=== PATIENT | female | born 2000 | race Caucasian/White ===

== ENCOUNTER 2021-06-16 01:20 | Emergency (ER) | payer BC ==
[~2021-06-16] VITALS: Ht 160 cm; Wt 101.2 kg
[~2021-06-16 01:20] MED LIST: AMOX500C PO; LISD20CA4 PO
--- NOTE | 2021-06-16 01:46 | PHYS DOC ---
Past History Past Medical History: Other Past Surgical History: No Surgical History Smoking: Non-smoker Alcohol Use: None Drug Use: None General Adult HPI: HPI: ".. I am having bad abdomen pain.. ." Patient is a 20 year old female who presents with above hx and complaints severe right upper quadrant pain after eating hamburgers tonight. Patient has history of previous episodes of her some high-fat meals during her . Patient recently delivered at [facility] 5 week.s ago. Patient had some preeclampsia symptoms. Patient denies any trauma. No history of bad food. ate the same meal and was not ill from it. Patient denies any recent travel. No specific ill contacts. Patient does not know if family members had gallstones stones or gallbladder problems because she is adopted. Review of Systems: Review of Systems: Constitutional: Denies fever or chills Eyes: Denies change in visual acuity HENT: Denies nasal congestion or sore throat Respiratory: Denies cough or shortness of breath Cardiovascular: Denies chest pain or edema GI: Complains of severe right upper quadrant abdominal pain, nausea,. Denies vomiting, bloody stools or diarrhea : Denies dysuria Musculoskeletal: Denies back pain or joint pain Integument: Denies rash Neurologic: Denies headache, focal weakness or sensory changes Endocrine: Denies polyuria or polydipsia Lymphatic: Denies swollen glands Psychiatric: Denies depression or anxiety Family History: Family History: Not available since she is adopted Current Medications: Current Meds: See nursing for home medications Allergies: Allergies: Allergies Coded Allergies Type Severity Reaction Last Updated Verified No Known Drug Allergies 11/13/15 No Physical Exam: PE: Constitutional: Moderate acute distress, non-toxic appearance. [] HENT: Normocephalic, atraumatic, bilateral external ears normal, oropharynx moist, no oral exudates, nose normal. [] Eyes: PERRLA, EOMI, conjunctiva normal, no discharge. [] Neck: Normal range of motion, no tenderness, supple, no stridor. [] Cardiovascular: Bradycardia heart rate regular rhythm, no murmur [] Lungs & Thorax: Bilateral breath sounds equal apex on auscultation [] Abdomen: Bowel sounds decreased, soft, right upper quad tenderness, no masses, no pulsatile masses. [] Rebound to right upper quadrant. Distended. Obese Skin: Warm, dry, no erythema, no rash. [] Back: No tenderness, no CVA tenderness. [] Extremities: No tenderness, no cyanosis, no clubbing, ROM intact, no edema. No psoas sign. Neurologic: Alert and oriented X 3, normal motor function, normal sensory function, no focal deficits noted. [] Psychologic: Affect anxious, judgement normal, mood normal. [] EKG: EKG: My interpretation of EKG shows a sinus bradycardia at 56 bpm no acute morphology. Time of EKG is 206 hours [] Radiology/Procedures: Radiology/Procedures: [address] [address] IMAGING REPORT Signed PATIENT: VICTORIA CARROLL ACCOUNT: [id number] : 2000 LOCATION: ER AGE: 20 SEX: F EXAM STATUS: REG ER ORD. PHYSICIAN: FRANKLIN TAYLOR MD REASON: Right sided abdomen pain, childbirth 1 month ago Omni 300 75cc PROCEDURE: CT ABD PELV W/ORAL&IV CONTRAST CT ABDOMEN+PELVIS W History: Right-sided abdominal pain. Comparison: None. Technique: CT of the abdomen and pelvis with intravenous and oral contrast. Findings: The lung bases are clear. The liver is unremarkable. Cholelithiasis. Mild common bile duct dilatation measuring 9 mm diameter with mild intrahepatic biliary ductal dilatation. The pancreas, spleen and adrenal glands are unremarkable. The kidneys are within normal limits. No nephrolithiasis or hydronephrosis. The stomach and small bowel are within normal limits. Normal appendix. Mild colonic stool burden. No colonic wall thickening or pericolonic inflammatory changes. The uterus and bladder are unremarkable. No intra-abdominal free fluid or free air. Vasculature is within normal limits. No adenopathy. Soft tissues and osseous structures are unremarkable. Impression: 1. Mildly dilated 9 mm common bile duct and mild intrahepatic biliary ductal dilatation. Cholelithiasis. Findings may relate to choledocholithiasis. If there is evidence of cholestasis, consider MRCP for further evaluation. 2. Mild colonic stool burden without obstruction. ------ Exposure: One or more of the following individualized dose reduction techniques were utilized for this examination: 1. Automated exposure control 2. Adjustment of the mA and/or kV according to patient size 3. Use of iterative reconstruction technique. Electronically signed by: Kartik Russell MD (06/16/2021 3:42 AM) [facility] DICTATED AND SIGNED BY: KARTIK RUSSELL MD DATE: 06/16/21 033 CC: FRANKLIN TAYLOR MD; KATIE JC ~ [][place] [address] IMAGING REPORT Signed PATIENT: STUART GARCIA ACCOUNT: [id number] : 12/29/1954 LOCATION: ER AGE: 66 SEX: M EXAM STATUS: REG ER ORD. PHYSICIAN: FRANKLIN TAYLOR MD REASON: Chest pain, short of air PROCEDURE: PORTABLE CHEST 1V XR CHEST 1V History: Chest pain, short of air Comparison: 03/10/2021 Technique: Portable AP radiograph of the chest. Findings: Mild hypoinflation. Prominence of the pulmonary vasculature and interstitial markings, increased from comparison. Cardiac silhouette is normal in size. No focal consolidation, pleural effusion or pneumothorax. Partially visualized ACDF. Degenerative changes of the shoulders. Soft tissues are unremarkable. Impression: 1. Prominence of the pulmonary vasculature and interstitial markings may be crowding from under inflation versus mild edema. Electronically signed by: Kartik Russell MD (06/16/2021 3:56 AM) [facility] DICTATED AND SIGNED BY: KARTIK RUSSELL MD DATE: 06/16/21 3890 CC: FRANKLIN TAYLOR MD; PCP,UNKNOWN ~ Heart Score: C/O Chest Pain: N/A Risk Factors: Risk Factors: DM, Current or recent (<one month) smoker, HTN, HLP, family history of CAD, obesity. Risk Scores: Score 0 - 3: 2.5% MACE over next 6 weeks - Discharge Home Score 4 - 6: 20.3% MACE over next 6 weeks - Admit for Clinical Observation Score 7 - 10: 72.7% MACE over next 6 weeks - Early Invasive Strategies Course & Med Decision Making: Course & Med Decision Making Pertinent Labs and Imaging studies reviewed. (See chart for details) Discussed presentation and testing with Dr. Quan and Dr. Peacock. Transfer to [facility] for surgical eval. Impression: 1. Abdomen pain 2. Biliary colic 3. Status post delivery [facility]-5 week ago -Pre-eclampsia 4. Sinus bradycardia 5. Constipation 6. Mild elevation AST 88 ALT 135 7. Distal 9 mm stone in the common duct with dilation [] Meir Disclaimer: Meir Disclaimer: This electronic medical record was generated, in whole or in part, using a voice recognition dictation system. Departure Departure: Referrals: LIZZY PEDROZA MD (PCP) Meir Disclaimer This chart was dictated in whole or in part using Voice Recognition software in a busy, high-work load, and often noisy Emergency Department environment. It may contain unintended and wholly unrecognized errors or omissions. FRANKLIN TAYLOR MD Jun 16, 2021 01:46
[2021-06-16] MEDS ORDERED: ONDANSETRON PF 4 MG/2 ML VIAL. IVP ONE ×2 (02:00)
[2021-06-16] MEDS ORDERED: FAMOTIDINE 20 MG/2 ML VIAL IVP ONE ×2 (02:00)
[2021-06-16] MEDS ORDERED: KETOROLAC 30 MG/ML VIAL. IVP ONE (02:00)
[2021-06-16] MEDS ORDERED: IV RINGERS SOLUTION,LACTATED 1,000 ML IV SCH (02:00)
[2021-06-16] MEDS ORDERED: SERT-267 PO (02:00)
--- NOTE | 2021-06-16 02:10 | EKG ---
[address] [address] Test Date: 2021-06-16 Test Time: 02:06:09 Pat Name: VICTORIA CARROLL Department: Room: Gender: F [employer] Worker: : 2000 Requested By: FRANKLIN TAYLOR Order Number: [id number] Reading MD: Silvio Harris MD Measurements Intervals [place] Rate: 56 P: 34 ND: 138 QRS: 47 QRSD: 82 T: 31 QT: 442 QTc: 429 Interpretive Statements SINUS RHYTHM Electronically Signed On 06-18-2021 17:54:26 CDT by Silvio Harris MD
[2021-06-16] MEDS ORDERED: MORPHINE SULFATE 10 MG/ML SYRINGE. SQ ONE (02:15)
[2021-06-16 02:38] LABS: BASO % 1 % (0-3); EOS # 0.1 x10^3/uL (0.0-0.7); EOS % 1 % (0-3); HEMOGLOBIN 11.4 g/dL (12.0-15.5); LYMPH # 2.9 x10^3/uL (1.0-4.8); LYMPH % 31 % (24-48); MEAN CORPUSCULAR HEMOGLOBIN 26 pg (25-35); MEAN CORPUSCULAR HGB CONC 33 g/dL (31-37); MEAN CORPUSCULAR VOLUME 81 fL (79-100); MONO # 0.5 x10^3/uL (0.0-1.1); MONO % 5 % (0-9); NEUT # 5.6 x10^3uL (1.8-7.7); NEUT % 62 % (31-73); PLATELET COUNT 467 x10^3/uL (140-400); RED BLOOD COUNT 4.32 x10^6/uL (3.50-5.40); RED CELL DISTRIBUTION WIDTH 16.2 % (11.5-14.5); WHITE BLOOD COUNT 9.1 x10^3/uL (4.0-11.0)
[2021-06-16 02:39] LABS: ANION GAP 9 (6-14); BLOOD UREA NITROGEN 12 mg/dL (7-20); CALCIUM 8.9 mg/dL (8.5-10.1); CARBON DIOXIDE 26 mmol/L (21-32); CHLORIDE 104 mmol/L (98-107); CREATININE 0.7 mg/dL (0.6-1.0); GFR 105.6; GLUCOSE 110 mg/dL (70-99); POTASSIUM 3.9 mmol/L (3.5-5.1); SODIUM 139 mmol/L (136-145)
[2021-06-16 02:40] LABS: BARBITURATES NEG (NEG); BENZODIAZEPINES NEG (NEG); CANNABINOIDS NEG (NEG); COCAINE NEG (NEG); METHADONE NEG (NEG); OPIATES POS (NEG); PHENCYCLIDINE NEG (NEG)
[2021-06-16 02:42] LABS: AMPHETAMINE/METHAMPHETAMINE NEG (NEG)
[2021-06-16] MEDS ORDERED: CONTRAST GIVEN. MC PRN (02:45)
[2021-06-16] MEDS ORDERED: IOHEXOL 300 MG/ML 75 ML VIAL. IV ONE (02:45)
[2021-06-16] MEDS ORDERED: IOHEXOL 240 MG/ML 50ML VIAL. ONE (02:48)
[2021-06-16 02:54] LABS: ALBUMIN 3.7 g/dL (3.4-5.0); ALK PHOS 64 U/L (46-116); ALT (SGPT) 135 U/L (14-59); AMYLASE 29 U/L (25-115); AST (SGOT) 88 U/L (15-37); DIRECT BILIRUBIN 0.2 mg/dL (0.0-0.2); LIPASE 176 U/L (73-393); TOTAL BILIRUBIN 0.5 mg/dL (0.2-1.0); TOTAL PROTEIN 7.2 g/dL (6.4-8.2)
[2021-06-16] MEDS ORDERED: MAGNESIUM HYDROXIDE 2,400 MG/30 ML ORAL.SUSP. PO ONE (03:00)
[2021-06-16 03:06] LABS: BACTERIA,URINE MANY /HPF (0-FEW); CLARITY,URINE HAZY; COLOR,URINE YELLOW; GLUCOSE,URINE NEG (NEG); NITRITE,URINE NEG (NEG); RBC,URINE OCC /HPF (0-2); SQUAMOUS EPITHELIAL CELL,UR MANY /LPF; WBC,URINE >40 /HPF (0-4)
--- NOTE | 2021-06-16 03:07 | RAD ---
XR ABDOMEN COMP ACUTE History: Right upper quadrant abdominal pain. Comparison: None. Technique: Frontal chest with upright and supine radiographs of the abdomen and pelvis. Findings: Chest: Clear lungs. Normal cardiomediastinal silhouette. Bowel gas pattern: Nonobstructive bowel gas pattern. Mild colonic stool burden. Free air: None. Abnormal calcifications: None. Bones: No acute findings. Other: None. Impression: 1. No acute pulmonary findings. 2. No acute abdominopelvic findings. Nonobstructive bowel gas pattern. Mild colonic stool burden. Electronically signed by: Kartik Ball MD (06/16/2021 3:04 AM) [facility]
--- NOTE | 2021-06-16 03:45 | RAD ---
CT ABDOMEN+PELVIS W History: Right-sided abdominal pain. Comparison: None. Technique: CT of the abdomen and pelvis with intravenous and oral contrast. Findings: The lung bases are clear. The liver is unremarkable. Cholelithiasis. Mild common bile duct dilatation measuring 9 mm diameter with mild intrahepatic biliary ductal dilatation. The pancreas, spleen and a drenal glands are unremarkable. The kidneys are within normal limits. No nephrolithiasis or hydroneph rosis. The stomach and small bowel are within normal limits. Normal appendix. Mild colonic stool burden. No colonic wall thickening or pericolonic inflammatory changes. The uterus and bladder are unremarkable. No intra-abdominal free fluid or free air. Vasculature is wi thin normal limits. No adenopathy. Soft tissues and osseous structures are unremarkable. Impression: 1. Mildly dilated 9 mm common bile duct and mild intrahepatic biliary ductal dilatation. Cholelithia sis. Findings may relate to choledocholithiasis. If there is evidence of cholestasis, consider MRCP f or further evaluation. 2. Mild colonic stool burden without obstruction. ------ Exposure: One or more of the following individualized dose reduction techniques were utilized for thi s examination: 1. Automated exposure control 2. Adjustment of the mA and/or kV according to patient size 3. Use of iterative reconstruction technique. Electronically signed by: Kartik Ball MD (06/16/2021 3:42 AM) [facility]
[2021-06-16] MEDS ORDERED: cefTRIAXone SODIUM 1 GM VIAL ONE (05:32)
[2021-06-16] MEDS ORDERED: IV NORMAL SALINE 50ML 50 ML ONE (05:32)
[2021-06-16 06:00] LABS: INFLUENZA A PATIENT NEGATIVE (NEGATIVE); INFLUENZA B PATIENT NEGATIVE (NEGATIVE)
[2021-06-16 07:26] VITALS: BP 104/64
[2021-06-17 06:45] LABS: U PREG PATIENT NEGATIVE (NEG)
== END 2021-06-16 07:27 | disposition short-term general hospital (02) ==
LOC: ER 01:20
DX: O14.95 Unspecified pre-eclampsia, complicating the puerperium (principal); O26.63 Liver and biliary tract disorders in the puerperium; K80.50 Calculus of bile duct without cholangitis or cholecystitis without obstruction; K83.8 Other specified diseases of biliary tract; R00.1 Bradycardia, unspecified; K59.00 Constipation, unspecified; R79.89 Other specified abnormal findings of blood chemistry; Z20.822 Contact with and (suspected) exposure to COVID-19; Z98.890 Other specified postprocedural states
CPT/HCPCS: 36415; 74022; 74177; 80048; 80076; 80307; 81001; 81025; 82150; 82553; 83690; 84484; 85025; 85610; 85730; 87086; 87428; 93005; 96361; 96365; 96372; 96375; 99285; C9803; J0696; J1885; J2270; J2405; J3490; J7120; Q9967; U0003